=== PATIENT | male | born 1995 | race Caucasian/White ===

== ENCOUNTER 2021-05-07 20:22 | Emergency (ER) | payer OTHER ==
[~2021-05-07] VITALS: Ht 165.1 cm; Wt 72.0 kg
[2021-05-07] MEDS ORDERED: IBUPROFEN 600MG TABLET PO ONE (21:30)
[2021-05-07] MEDS ORDERED: TETANUS, DIPHTHERIA, PERTUSSIS VAC/PF 0.5ML (>10YR OLD) IM ONE (21:30)
[2021-05-07] MEDS ORDERED: CEFTRIAXONE SODIUM 1 G/VIAL IM ONE (21:30)
[2021-05-08] MEDS ORDERED: IBUP-2028 MT (01:09)
[2021-05-08] MEDS ORDERED: CEPH250C2 MT (01:09)
[2021-05-08 02:43] VITALS: BP 126/75
== END 2021-05-08 02:44 | disposition home or self-care (01) ==
LOC: ER 20:22
DX: S50.11XA Contusion of right forearm, initial encounter (principal); Y04.0XXA Assault by unarmed brawl or fight, initial encounter; Y93.89 Activity, other specified; Y92.89 Other specified places as the place of occurrence of the external cause; Y99.8 Other external cause status
CPT/HCPCS: 73060; 73090; 73130; 90471; 90715; 96372; 99284; A4217; J0696; Z7610